=== PATIENT | female | born 1995 | race Caucasian/White ===

== ENCOUNTER 2016-11-16 23:19 | Emergency (ER) | payer OTHER ==
[2016-11-16] MEDS ORDERED: BENZONATATE 100 MG CAPSULE PO STA (23:30)
[2016-11-16] MEDS ORDERED: BENZONATATE 100 MG CAPSULE PO ONE (23:47)
== END 2016-11-16 23:58 | disposition home or self-care (01) ==
DX: J06.9 Acute upper respiratory infection, unspecified (principal)
CPT/HCPCS: 71020; 99283; A9270

== ENCOUNTER 2017-01-26 00:30 | Emergency (ER) | payer OTHER ==
--- NOTE | 2017-01-26 00:59 | ED Physician Documentation ---
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 No: Shortness of air, Vomiting Similar symptoms before: Has not had sx before Recently seen: Not recently seen - Additional information Additional information: while at rest in car (at drive[place]in movie theater), patient had sudden onset midline epigastric and low chest pain. Onset approximately 20 to 30 minutes prior to arrival. Symptoms have nearly resolved prior to arrival. Patient denies history of similar symptoms. patient is approximately 7 1/2 weeks . She has not had an ultrasound in this . Review of Systems Constitutional: reports: Reviewed and negative Cardiac: reports: Chest pain / pressure. denies: Palpitations, Pedal edema, Calf pain Respiratory: reports: Reviewed and negative GI: reports: Abdominal Pain, Nausea. denies: Vomiting : reports: Frequency. denies: Dysuria PD PAST MEDICAL HISTORY - Past Medical History Past Medical History: No - Past Surgical History Past Surgical History: No - Present Medications Home Medications: Ambulatory Orders Medication Instructions Recorded Confirmed Lho311/FA/Omega3/Dha/Fish Oil 2 tab PO DAILY 01/26/17 01/26/17 [ Gummies] - Allergies Allergies/Adverse Reactions: Allergies Allergy/AdvReac Type Severity Reaction Status Date / Time No Known Drug Allergies Allergy Verified 11/16/16 23:29 - Social History Does the pt smoke?: No Smoking Status: Never smoker Does the pt drink ETOH?: Yes Does the pt have substance abuse?: No - Immunizations Immunizations are current?: Yes PD ED PE NORMAL - Vitals Vital signs reviewed: Yes - General General: Alert and oriented X 3, Well developed/nourished, Other (appears anxious and in mild painful discomfort) - HEENT HEENT: Moist mucous membranes - Cardiac Cardiac: RRR, No murmur - Respiratory Respiratory: No respiratory distress, Clear bilaterally - Abdomen Abdomen: Normal bowel sounds, Soft, Non tender, Non distended - Back Back: No CVA TTP - Derm Derm: Normal color, Warm and dry - Extremities Extremities: No edema Results - Vitals Vitals: Vital Signs - 24 hr 01/26/17 01/26/17 01/26/17 00:33 02:22 03:27 Temperature 36.6 C Heart Rate 92 86 88 Respiratory 26 H 18 14 Rate Blood Pressure 138/75 H 117/58 L 133/80 H O2 Saturation 100 100 100 Oxygen O2 Source Room air - Labs Labs: Laboratory Tests 01/26/17 01/26/17 01/26/17 01:05 01:05 01:05 WBC 11.1 H RBC 4.29 Hgb 12.7 Hct 37.6 MCV 87.5 MCH 29.6 MCHC 33.8 RDW 13.8 Plt Count 236 MPV 9.1 Neut # 6.6 Lymph # 3.4 [place] # 0.6 Eos # 0.5 Baso # 0.1 Absolute Nucleated RBC 0.00 Nucleated RBCs 0.0 Sodium 136 Potassium 4.0 Chloride 104 Carbon Dioxide 22 Anion Gap 10.0 BUN 7 Creatinine 0.5 Estimated GFR (MDRD) 154 Glucose 146 H Calcium 8.7 Total Bilirubin 0.4 AST 42 ALT 51 Alkaline Phosphatase 79 Total Protein 7.1 Albumin 3.6 Globulin 3.5 Albumin/Globulin Ratio 1.0 Lipase 17 L HCG, Quant 931057.00 - Rads (name of study) chest xray Radiology: Prelim report reviewed, See rad report Ob/TV US Radiology: Prelim report reviewed, See rad report PD MEDICAL DECISION MAKING - ED course Complexity details: reviewed results, re-evaluated patient, considered differential, d/w patient ED course: on reevaluation, after tests resulted, patient is resting comfortably in no apparent distress. Patient reports resolution of her symptoms. Test results reviewed with patient. Departure - Departure Disposition: 01 Home, Self Care Clinical Impression: Gallstone Qualifiers: Cholecystitis presence: without cholecystitis Biliary obstruction: without biliary obstruction Qualified Code(s): K80.20 - Calculus of gallbladder without cholecystitis without obstruction Qualifiers: Weeks of gestation: less than 8 weeks Qualified Code(s): Z3A.01 - Less than 8 weeks gestation of Condition: Good Instructions: ED Abdominal Pain Preg Gallstones Follow-Up: [facility] [Provider Group] Discharge Date/Time: 01/26/17 03:27
[2017-01-26 01:18] LABS: BASOPHILS # (AUTO) 0.1 10^3/uL (0.0-0.1); BASOPHILS % (AUTO) 0.7 %; EOSINOPHILS # (AUTO) 0.5 10^3/uL (0.0-0.7); EOSINOPHILS % (AUTO) 4.5 %; HCT - HEMATOCRIT 37.6 % (37.0-47.0); HGB - HEMOGLOBIN 12.7 g/dL (12.0-16.0); LYMPHOCYTES # (AUTO) 3.4 10^3/uL (1.5-3.5); LYMPHOCYTES % (AUTO) 30.6 %; MEAN CORPUSCULAR HEMOGLOBIN 29.6 pg (27.0-31.0); MEAN CORPUSCULAR HGB CONC 33.8 g/dL (32.0-36.0); MEAN CORPUSCULAR VOLUME 87.5 fL (81.0-99.0); MEAN PLATELET VOLUME 9.1 fL (7.9-10.8); MONOCYTES # (AUTO) 0.6 10^3/uL (0.0-1.0); MONOCYTES % (AUTO) 5.2 %; NEUTROPHILS # (AUTO) 6.6 10^3/uL (1.5-6.6); RED BLOOD COUNT 4.29 10^6/uL (4.20-5.40); RED CELL DISTRIBUTION WIDTH 13.8 % (12.0-15.0); UNCORRECTED WHITE BLOOD COUNT 11.1 x10^3/uL; WHITE BLOOD COUNT 11.1 x10^3/uL (4.8-10.8)
[2017-01-26 01:28] LABS: BILIRUBIN,TOTAL 0.4 mg/dL (0.2-1.0); CALCIUM 8.7 mg/dL (8.5-10.3); CREATININE 0.5 mg/dL (0.4-1.0); TOTAL PROTEIN 7.1 g/dL (6.7-8.2)
--- NOTE | 2017-01-26 01:58 | XRAY Preliminary Report ---
Exam: XR Chest 2 View PA/LAT IMPRESSION: Stable Normal 2-view chest radiography. [facility] SITE ID: [id number]
--- NOTE | 2017-01-26 02:00 | XRAY Report ---
EXAM: CHEST RADIOGRAPHY EXAM DATE: 01/26/2017 01:28 AM. CLINICAL HISTORY: Chest pain, dyspnea. COMPARISON: 11/16/2016. TECHNIQUE: 2 views. FINDINGS: Lungs/Pleura: No focal opacities evident. No pleural effusion. No pneumothorax. Normal volumes. Mediastinum: Heart and mediastinal contours are unremarkable. Other: None. IMPRESSION: Stable Normal 2-view chest radiography. [facility] Referring Provider Line: [phone] SITE ID: [id number]
[2017-01-26] MEDS ORDERED: ACETAMINOPHEN 325 MG TABLET PO STA (03:02)
[2017-01-26] MEDS ORDERED: ACETAMINOPHEN 325 MG TABLET PO ONE (03:05)
--- NOTE | 2017-01-26 03:05 | Ultrasound Preliminary Report ---
Exam: US OB First Trimester IMPRESSION: Single live intrauterine at EGA 7 weeks 6 days with GERALD 09/08/2017 based on composite age, which is concordant with dates based on LMP. [facility] SITE ID: [id number]
--- NOTE | 2017-01-26 03:07 | Ultrasound Report ---
REVISED: THIS REPORT WAS ORIGINALLY SIGNED ON 01/26/2017 @ 0307 ORDERS LINKED ON 02/18/2017 EXAM: FIRST TRIMESTER OBSTETRIC ULTRASOUND (Less than 11 weeks) EXAM DATE: 01/26/2017 02:36 AM. CLINICAL HISTORY: , abdominal pain LMP: 12/04/2016. COMPARISONS: None. TECHNIQUE: Transabdominal and transvaginal ultrasound examination with static image documentation. CLINICAL DATES: EGA 7 weeks 4 days with GERALD 09/10/2017 based on LMP. ASSESSMENT: Gestational Sac: Single intrauterine. Mean gestational sac diameter: 29.3 mm = 8 weeks 0 days. Embryo: CRL (crown-rump length) 11.2 mm = 7 weeks 2 days. Cardiac activity: 189 beats per minute. Yolk sac: 5.0 mm. Early placenta: Not visible at this gestational age. Other: There is a trace amount of perigestational fluid at the fundus. This has a hypoechoic appearance, probably an old subchorionic bleed. MATERNAL STRUCTURES: Uterus: Anteverted/Retroverted. Unremarkable. Cervix: Closed. Right Ovary: Normal right ovary measuring 2.4 x 2.3 x 1.9 cm. There is a 1.5% per sodium cyst. Left Ovary: Normal appearance measuring 2.1 x 1.6 11.5 cm. Free Fluid: None. Other: None. IMPRESSION: Single live intrauterine at EGA 7 weeks 6 days with GERALD 09/08/2017 based on composite age, which is concordant with dates based on LMP. [facility] Referring Provider Line: [phone] SITE ID: [id number]
--- NOTE | 2017-01-26 03:09 | Ultrasound Preliminary Report ---
Exam: US Abdomen Limited IMPRESSION: 1. Gallstones and sludge without definite evidence of cholecystitis or biliary duct dilation. 2. Mild hepatic steatosis. [facility] SITE ID: [id number]
--- NOTE | 2017-01-26 03:12 | Ultrasound Report ---
EXAM: ABDOMEN ULTRASOUND LIMITED, RUQ EXAM DATE: 01/26/2017 01:23 AM. CLINICAL HISTORY: Abdominal pain and COMPARISON: None. TECHNIQUE: Real-time scanning was performed with static images obtained. FINDINGS: Patient body habitus compromises exam sensitivity and specificity. Liver: Mild increased echogenicity. No suspicious focal lesion. Liver measures 17.4 cm in length. Portal Vein: Patent with hepatopetal flow. Gallbladder: Partially contracted. Borderline wall thickening. Gallbladder sludge and stones. No gregg cholecystic fluid. Absent Palm sign. Biliary System: CBD measures 3.5 mm. No intrahepatic or extrahepatic ductal dilatation. Pancreas: Obscured by overlying structures. Right Kidney: Visualized portions of the right kidney are without significant abnormality. It measur es 9.7 cm in length. Other: None. IMPRESSION: 1. Gallstones and sludge without definite evidence of cholecystitis or biliary duct dilation. 2. Mild hepatic steatosis. [facility] Referring Provider Line: [phone] SITE ID: [id number]
[2017-01-26 03:29] VITALS: BP 133/80
== END 2017-01-26 03:27 | disposition home or self-care (01) ==
LOC: ED 00:30
DX: O99.611 Diseases of the digestive system complicating pregnancy, first trimester (principal); K80.20 Calculus of gallbladder without cholecystitis without obstruction; Z3A.01 Less than 8 weeks gestation of pregnancy; K76.0 Fatty (change of) liver, not elsewhere classified
CPT/HCPCS: 36415; 71020; 76705; 76801; 76817; 80053; 83690; 84702; 85025; 99283; 99284; A9270

== ENCOUNTER 2017-03-24 08:54 | Day surgery (SDC) | payer OTHER ==
[~2017-03-24 08:54] MED LIST: ceFAZolin 2 GM/50 ML 50 ML IV ONE
[2017-03-24] MEDS ORDERED: LACTATED RINGERS 1,000 ML IV ONE ×3 (09:29→13:06)
[2017-03-24] MEDS ORDERED: BUPIVACAINE 0.5%-EPI 1:200000 PF 30 ML VIAL SUBQ ONE (10:04)
[2017-03-24] MEDS ORDERED: DEXAMETHASONE 4 MG/ML VIAL IVP ONE (10:20)
[2017-03-24] MEDS ORDERED: PROPOFOL 200 MG/20 ML VIAL IVP ONE (10:20)
[2017-03-24] MEDS ORDERED: ONDANSETRON 4 MG/2 ML VIAL IVP ONE (10:20)
[2017-03-24] MEDS ORDERED: NEOSTIGMINE 1 MG/1 ML 10 ML MDV IVP ONE (10:20)
[2017-03-24] MEDS ORDERED: GLYCOPYRROLATE 1 MG/5 ML VIAL IVP ONE (10:20)
[2017-03-24] MEDS ORDERED: ROCURONIUM 50 MG/5 ML VIAL IVP ONE (10:20)
[2017-03-24] MEDS ORDERED: fentaNYL 100 MCG/2 ML VIAL IVP ONE (10:20)
[2017-03-24] MEDS ORDERED: SUCCINYLCHOLINE 200 MG/10 ML VIAL IVP ONE (10:20)
[2017-03-24] MEDS ORDERED: LIDOCAINE-MPF 2% 5 ML VIAL IM ONE (10:20)
[2017-03-24] MEDS: HYDROmorphone 1 MG/ML SYRINGE ONE ×2 (11:24→11:41)
--- NOTE | 2017-03-24 12:17 | OPERATIVE REPORT ---
DATE OF SURGERY: 03/24/2017 00:00:00 PREOPERATIVE DIAGNOSIS: Biliary colic. POSTOPERATIVE DIAGNOSIS: Biliary colic. NAME OF PROCEDURE: Laparoscopic cholecystectomy. INDICATION FOR PROCEDURE: This is a 21-year-old 13-week gestation female with persistent biliary coli c and weight loss throughout her first trimester of who is coming in for an elective laparo scopic cholecystectomy. FINDINGS: After obtaining informed consent from the patient, including possible risk to her fetus, neetu dejesus was brought into the operating room and positioned on the operating table in the supine position wi th a bump placed under her right flank. She was intubated by Anesthesia. She was administered 2 grams of Ancef. She was prepped and draped in the usual sterile fashion and a time-out was taken according to protocol. An infraumbilical 1 cm incision was created and deepened down towards the abdominal fas devon. The fascia was grasped, elevated, and incised using Sanderson technique to enter the abdominal cavi ty carefully. The Cecy port was placed and the abdominal cavity insufflated. An epigastric port was placed just to the right of the midline and 2 additional 5 mm ports were placed along the right late ral abdominal wall. The gallbladder was grasped and retracted over the dome of the liver. It was not noted to be markedly inflamed. The base of the gallbladder was grasped and retracted medially exposin g the lateral gallbladder attachments. These were taken down with blunt and cautery dissection. I wor ked my way medially exposing the cystic duct and artery. The critical view was obtained leilani th structures from the underlying fatty tissues. The cystic duct was clamped twice proximally, once d istally and divided. The cystic artery was clamped in a similar manner. There was a small amount of o ozing from the cystic duct, cystic artery stump. An additional clip was placed to obtain hemostasis. The gallbladder was then removed from the gallbladder fossa with electrocautery. It was placed in a s pecimen bag and removed through the umbilical port. The underlying liver bed and clips were inspected for any signs of bleeding and none were noted. The Xavier-Leroy device was utilized to close the abdominal fascial incision with [id number] 0 Vicryl suture. The ports were removed. The abdomina l cavity was desufflated and the skin incisions were closed with 4-0 Monocryl and Dermabond was appli ed, and 30 mL of local anesthetic was utilized. The patient was extubated and taken to recovery in st able condition. Postoperative monitoring was performed, which demonstrated no distress. COMPLICATIONS: None. BLOOD LOSS: 5 mL. SPECIMEN: Gallbladder. JOB #: [id number] EXT JOB #:[id number]
[2017-03-24 13:05] VITALS: BP 116/78
== END 2017-03-24 08:55 | disposition home or self-care (01) ==
LOC: SDS 08:54
PROVIDERS: ATTEND Surgery
PROC: 0FT44ZZ Resection of Gallbladder, Percutaneous Endoscopic Approach (ICD-10-PCS; principal; 2017-03-24 10:00)
DX: O99.89 Other specified diseases and conditions complicating pregnancy, childbirth and the puerperium (principal); K80.64 Calculus of gallbladder and bile duct with chronic cholecystitis without obstruction; Z3A.13 13 weeks gestation of pregnancy
CPT/HCPCS: 47562; J0690; J1170; J7120; 88304

== ENCOUNTER 2017-05-28 22:26 | Outpatient (CLI) | payer OTHER ==
[2017-05-28 22:44] VITALS: BP 146/79
== END 2017-05-28 23:15 | disposition home or self-care (01) ==
LOC: WFO 22:26 → FBP 22:28 → WFO 23:15
PROVIDERS: ATTEND Obstetrics & Gynecology
DX: Z34.02 Encounter for supervision of normal first pregnancy, second trimester (principal)
CPT/HCPCS: 99212

== ENCOUNTER 2017-06-10 22:33 | Emergency (ER) | payer OTHER ==
[2017-06-10 23:10] LABS: BILIRUBIN,URINE NEGATIVE (NEGATIVE)
[2017-06-10 23:23] LABS: UA w/ MICROSCOPIC CHARGE YES
[2017-06-10 23:24] LABS: UR CULTURE IF IND NOT INDICATED
--- NOTE | 2017-06-11 | ED Physician Documentation ---
PD HPI FEMALE - Stated complaint Stated Complaint: FEMALE /ABD PX - Chief complaint Chief Complaint: Abd Pain - History obtained from History obtained from: Patient - History of Present Illness Timing - onset: How many weeks ago (1) Timing - details: Gradual onset, Waxing and waning Associated symptoms: Abdominal pain. 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 This morning patient noted foul odor and dark color to her urine Review of Systems Constitutional: denies: Fever, Chills, Sweats Cardiac: reports: Reviewed and negative Respiratory: reports: Reviewed and negative GI: reports: Abdominal Pain (right flank). denies: Nausea, Vomiting, Constipation, Diarrhea : denies: Dysuria, Frequency PD PAST MEDICAL HISTORY - Past Medical History Cardiovascular: None Respiratory: None Endocrine/Autoimmune: None GI: None : None HEENT: None Psych: None Musculoskeletal: None Derm: None - Past Surgical History Past Surgical History: Yes General: Cholecystectomy - Present Medications Home Medications: Ambulatory Orders Medication Instructions Recorded Confirmed Vit Calc,Iron,Folic 1 tab PO DAILY 06/10/17 06/10/17 [ Vitamins] Amox/Clav 875/125 [Augmentin] 1 each PO Q12H #9 tablet 06/11/17 - Allergies Allergies/Adverse Reactions: Allergies Allergy/AdvReac Type Severity Reaction Status Date / Time No Known Drug Allergies Allergy Verified 06/10/17 22:44 - Social History Does the pt smoke?: No Smoking Status: Never smoker Does the pt drink ETOH?: Yes Does the pt have substance abuse?: No - Immunizations Immunizations are current?: Yes - POLST Patient has POLST: No PD ED PE NORMAL - Vitals Vital signs reviewed: Yes - General General: Alert and oriented X 3, No acute distress, Well developed/nourished - Cardiac Cardiac: RRR, No murmur - Respiratory Respiratory: No respiratory distress, Clear bilaterally - Abdomen Abdomen: Normal bowel sounds, Soft, Non tender, Non distended, Other ( appropriately gravid) - Back Back: No CVA TTP - Derm Derm: Normal color, Warm and dry Results - Vitals Vitals: Vital Signs - 24 hr 06/10/17 06/11/17 22:45 00:29 Temperature 36.4 C L Heart Rate 102 H 95 Respiratory 18 16 Rate Blood Pressure 130/83 H 128/76 O2 Saturation 100 100 Oxygen O2 Source Room air - Labs Labs: Laboratory Tests 06/10/17 22:52 Urine Color YELLOW Urine Clarity CLEAR Urine pH 7.0 Ur Specific [place] 1.015 Urine Protein NEGATIVE Urine Glucose (UA) NEGATIVE Urine Ketones NEGATIVE Urine Occult Blood NEGATIVE Urine Nitrite NEGATIVE Urine Bilirubin NEGATIVE Urine Urobilinogen 0.2 (NORMAL) Ur Leukocyte Esterase SMALL H Urine RBC None Seen Urine WBC 4-5 Ur Squamous Epith Cells MOD Squamous H Urine Bacteria None Seen Ur Microscopic Review INDICATED Urine Culture Comments NOT INDICATED PD MEDICAL DECISION MAKING - ED course Complexity details: reviewed results, considered differential, d/w patient Departure - Departure Disposition: 01 Home, Self Care Clinical Impression: Urinary tract infection Condition: Good Instructions: ED UTI Cystitis Female Follow-Up: [facility] [Provider Group] Prescriptions: Amox/Clav 875/125 [Augmentin] 1 each PO Q12H #9 tablet Discharge Date/Time: 06/11/17 00:30
[2017-06-11] MEDS ORDERED: AMOX/CLAV 875 MG/125 MG TABLET PO STA (00:20)
[2017-06-11] MEDS ORDERED: AMOX/CLAV 875 MG/125 MG TABLET PO ONE (00:26)
[2017-06-11 00:30] VITALS: BP 128/76
== END 2017-06-11 00:30 | disposition home or self-care (01) ==
LOC: ED 22:33
DX: O23.42 Unspecified infection of urinary tract in pregnancy, second trimester (principal); Z3A.27 27 weeks gestation of pregnancy
CPT/HCPCS: 81001; 99283; A9270; 81003; 87086